=== PATIENT | female | born 1995 | race Caucasian/White ===

== ENCOUNTER 2024-04-01 18:09 | Emergency (ER) | payer MEDICAID, SELFPAY ==
[2024-04-01 18:27] VITALS: BP 120/81; PULSE 67; RESP 16; TEMP 37; O2SAT 98; BMI 33.3
[2024-04-01 20:36] VITALS: BP 118/79; PULSE 71; RESP 16; TEMP 37; O2SAT 98
[2024-04-01 20:43] LABS: Appearance Urine Cloudy (Clear); Bilirubin Urine Negative (Negative); Blood Urine 3+ (Negative); Color Urine Yellow (Yellow); Glucose Urine Negative (Negative); Ketones Urine Negative (Negative); Leukocyte Esterase Urine 1+ (Negative); Nitrite Urine Negative (Negative); Protein Urine Negative (Negative); Specific Gravity Urine 1.015 (1.000-1.030); Urobilinogen Urine 0.2 (0.2-1.0); pH Urine 6.5 (5.0-8.5)
--- NOTE | 2024-04-01 20:52 | ED.GENADULT ---
HPI - General Adult General Chief complaint: Urogenital Problems, Female Stated complaint: 5 weeks - cramping Time Seen by Provider: 04/01/24 19:34 History of Present Illness HPI narrative: This 29-year-old female comes in stating that she had a positive home test recently. She went into urgent care and her test there was negative. She was tested for strep infection and started on amoxicillin even though the rapid strep test was negative. She took this medicine and stated to the provider that she typically gets yeast infections symptoms when taking an antibiotic. She was called the next day stating that the strep culture was negative and that she should discontinue her antibiotic. Since then she did another home test which was again positive for her despite the negative test at the urgent care clinic. She comes in today stating that she has some vaginal itching and burning ends of abdominal cramping but no bloody discharge. Related Data Previous Rx's ?Medication ?Instructions ?Recorded fluconazole 100 mg tablet 100 mg PO DAILY #10 tabs 04/01/24 (Diflucan) Allergies Allergy/AdvReac Type Severity Reaction Status Date / Time No Known Drug Allergies Allergy Verified 04/01/24 18:26 Review of Systems Status of ROS: Reports: 10 or more systems reviewed and unremarkable except as noted in History and below Narrative: Constitutional: No fevers, no weight gain or loss. Eyes: No discharge. No vision changes. HENT: No congestion, no sore throat, no ear pain. Cardiovascular: No chest pain, no palpitations. Respiratory: No shortness of breath, no wheezes, no cough. Gastrointestinal: No abdominal pain, no vomiting, no diarrhea. Genitourinary: Increased urinary frequency. Vaginal burning and itching. Musculoskeletal: Normal range of motion. Skin: No rashes, no pruritis. Neurological: No dizziness, weakness, sensory change, speech change. Endo/Heme/Allergies: No bruising or bleeding. No polydipsia. Pysch: no suicidality, no anxiety, no insomnia. All other systems reviewed and are negative. Exam Narrative: Exam Narrative: Constitutional: Well-developed, well-nourished, no acute distress. HEENT: Normocephalic, atraumatic. Neck: Normal range of motion. Nontender. Supple. Heart: Intact distal pulses. Lungs: No chest discomfort. No wheezes, rhonchi, or rales. Abdomen: Nontender. Back: Normal range of motion. Extremities: Normal range of motion. No injury. Skin: Intact. No rash. Warm. No erythema or pallor. Neurologic: No altered sensation. No weakness. Alert and oriented. Psychiatric: No suicidality. No anxiety or depression. No insomnia. Nursing notes and vitals signs are reviewed. Const: Vital Signs, click to edit/add: Vital Signs - 24 hr 04/01/24 18:27 04/01/24 20:36 Temperature 98.6 F 98.6 F Pulse Rate [Pulse Oximeter] 67 71 Respiratory Rate 16 16 Blood Pressure [[facility]] 120/81 118/79 Pulse Oximetry 98 98 Oxygen Delivery Me thod Room Air Room Air Course Vital Signs Vital signs: Initial Vital Signs Temperature 98.6 F 04/01/24 18:27 Temperature Source Temporal Artery Scan 04/01/24 18:27 Pulse Rate 67 04/01/24 18:27 Respiratory Rate 16 04/01/24 18:27 Blood Pressure 120/81 04/01/24 18:27 Blood Pressure Mean 94 04/01/24 18:27 Blood Pressure Position Sitting 04/01/24 18:27 Pulse Oximetry 98 04/01/24 18:27 Oxygen Delivery Method Room Air 04/01/24 18:27 Vital Signs Temperature 98.6 F 04/01/24 18:27 Pulse Rate 67 04/01/24 18:27 Respiratory Rate 16 04/01/24 18:27 Blood Pressure 120/81 04/01/24 18:27 Pulse Oximetry 98 04/01/24 18:27 Oxygen Delivery Method Room Air 04/01/24 18:27 Temperature 98.6 F 04/01/24 20:36 Pulse Rate 71 04/01/24 20:36 Respiratory Rate 16 04/01/24 20:36 Blood Pressure 118/79 04/01/24 20:36 Pulse Oximetry 98 04/01/24 20:36 Oxygen Delivery Method Room Air 04/01/24 20:36 Medical Decision Making MDM Narrative Medical decision making narrative: This patient comes in with concern that she is but also reports dysuria symptoms and some vaginal itching and burning. A quantitative beta hCG level returns undetected so the patient is definitely not . Urinalysis however does show evidence of urinary tract infection and her symptoms seem to also indicate a concomitant yeast infection. The patient received an oral dose of Diflucan here and prescriptions are provided for Diflucan and and [facility] prescription for Keflex is provided. Lab Data Labs: Lab Results 04/01/24 04/01/24 Range/Units 20:34 21:07 HCG, Quant < 2.39 mIU/mL Urine Color Yellow (Yellow) Urine Appearance Cloudy A (Clear) Urine pH 6.5 (5.0-8.5) Ur Specific [place] 1.015 (1.000-1.030) Urine Protein Negative (Negative) Urine Glucose (UA) Negative (Negative) Urine Ketones Negative (Negative) Urine Blood 3+ A (Negative) Urine Nitrite Negative (Negative) Urine Bilirubin Negative (Negative) Urine Urobilinogen 0.2 (0.2-1.0) Ur Leukocyte Esterase 1+ A (Negative) Urine RBC 5-10 A (0-2) Urine WBC 5-10 A (0-5) Ur Squamous Epith Cells Few (None-Few) Urine Bacteria Few A (None) Discharge Plan Discharge Clinical Impression: Urinary tract infection Patient Disposition: Home, Self-Care Condition: Stable Additional Instructions: Take medication as prescribed. Follow up with MD or return if worsening symptoms occur. Prescriptions: New fluconazole [Diflucan] 100 mg tablet 100 mg PO DAILY Qty: 10 0RF Follow Up/Referrals: Provider,Not a Local [Primary Care Provider] - Stand Alone Forms: [employer] Info Instructions
[2024-04-01 21:01] LABS: Bacteria Urine Few; Squamous Epithelial Cell Urine Few (None-Few)
[2024-04-01 21:50] LABS: HCG Quantitative* < 2.39 mIU/mL
[2024-04-01] MEDS: FLUCONAZOLE 100 MG TABLET 200 MG PO (22:05)
[2024-04-01 22:15] VITALS: BP 115/74; PULSE 78; RESP 16; TEMP 37; O2SAT 98
[2024-04-01 22:24] VITALS: BP 115/74; PULSE 78; RESP 16; TEMP 37
== END 2024-04-01 22:24 | disposition home or self-care (01) ==
PROVIDERS: Emergency Provider Emergency Medicine Emergency Medical Services
DX: N39.0 Urinary tract infection, site not specified (principal)
CPT/HCPCS: 36415; 81001; 84702; 87086; 87186; 99283; 99284; A9270

== ENCOUNTER 2024-06-12 21:19 | Emergency (ER) | payer MEDICAID, SELFPAY ==
[2024-06-12 21:24] VITALS: BP 125/85; PULSE 66; RESP 18; TEMP 37.1; O2SAT 99; BMI 33.3
[2024-06-12 21:38] LABS: Appearance Urine Clear (Clear); Bilirubin Urine Negative (Negative); Blood Urine Trace-intact (Negative); Color Urine Yellow (Yellow); Glucose Urine Negative (Negative); Ketones Urine Negative (Negative); Leukocyte Esterase Urine Negative (Negative); Nitrite Urine Negative (Negative); Protein Urine Negative (Negative); Specific Gravity Urine <= 1.005 (1.000-1.030); Urobilinogen Urine 0.2 (0.2-1.0); pH Urine 5.5 (5.0-8.5)
[2024-06-12 21:45] LABS: RBC Urine 0-2 (0-2); Squamous Epithelial Cell Urine Few (None-Few); WBC Urine 0-2 (0-5)
[2024-06-12 21:46] LABS: Ur HCG Qualitative* POSITIVE (Negative)
--- NOTE | 2024-06-12 21:56 | CRLHL7_ITS ---
For Patients: As a result of the Century Cures Act, medical imaging exams and procedure reports are released immediately into your electronic medical record. You may view this report before your referring provider. If you have questions, please contact your health care provider. INDICATION: Pelvic pain, positive test. TECHNIQUE: Ultrasound pelvis transvaginal for better assessment or to better visualize the endometrium. Real-time sonographic images with spectral and color Doppler imaging of the ovaries were obtained. COMPARISON: None. FINDINGS: Uterus: 9.9 x 4.8 x 5.4 cm. Normal echotexture of the myometrium. No masses. Endometrium: Transvaginal imaging was performed to better evaluate the endometrium. Endometrial thickness measures 2.7 cm. No sign of endometrial mass or fluid collection. Right ovary measures 5.0 x 4.2 x 4.5 cm. Left ovary measures 2.2 x 2.5 x 2.5 cm. The right ovary is enlarged by a 4.2 x 4.0 x 3.8 cm hemorrhagic cyst. Normal blood flow is demonstrated in both ovaries. Cul-de-sac: No significant free fluid. IMPRESSION: 1. Markedly distended endometrium measuring 2.7 cm. No intrauterine gestation identified. In the setting of a positive beta HCG, findings could represent an early nonvisualized intrauterine gestation, an early nonvisualized ectopic , or a failed intrauterine gestation. Recommend close clinical follow-up with serial B-HCGs and repeat US, as indicated. 2. 4.2 cm right ovarian hemorrhagic cyst. Dictated by Allen Carrasco MD @ 06/13/2024 12:31:38 AM (Electronically Signed)
[2024-06-12 22:20] LABS: Lactate Sepsis w/Reflex* 0.8 mmol/L (0.5-1.9)
--- NOTE | 2024-06-12 22:56 | ED_ITS ---
HPI - General Adult General Date Seen: 06/12/24 Chief complaint: Abdominal Pain Stated complaint: severe abdominal pain, vomiting blood Time Seen by Provider: 06/12/24 21:30 Source: patient History of Present Illness HPI narrative: Patient is a 29-year-old woman who says she has had lower abdominal pain for about a week now. She describes it as a brief stabbing pain, lasting a couple of seconds but severe when it is there. She also says there is sort of a pressure sensation that is worse when she is walking or moving around, that feels more like labor pains. Over the past couple of days she says that the pain has worsened, and today she had several episodes of vomiting, a couple of times with some small clots of blood. The last time she vomited she says it was just saliva without any blood. She has not had any vomiting since then. She notes that her breasts have been somewhat tender. Her last period was May 04, she says ever since getting and the Nexplanon removed she has had irregular periods. She does take control pills. She has a history of 4 pregnancies, 1 molar greater than 8 years ago. She has 3 children. She denies new partners. She does feel like she has had a little more discharge than usual. She has not had urinary symptoms. She has not had any vaginal bleeding. She denies substance use, rare alcohol. Denies abdominal surgeries, did have a breast reduction. Related Data Previous Rx's ?Medication ?Instructions ?Recorded oxycodone 5 mg tablet 5 mg PO Q6H PRN pain #10 tabs 06/13/24 Allergies Allergy/AdvReac Type Severity Reaction Status Date / Time No Known Drug Allergies Allergy Verified 04/01/24 18:26 Review of Systems Status of ROS: Reports: 6 or more systems reviewed and unremarkable except as noted in History and below [facility] Medical History No significant past medical history Surgical History No significant past surgical history Social History Smoking Status: Never smoker Second hand tobacco smoke exposure: No How often do you have a drink containing alcohol: never AUDIT-C Alcohol total score: 0 Non-prescribed substance use: denies use service: No Exam Narrative: Exam Narrative: Vital signs reviewed In general, alert, nontoxic woman. She looks comfortable. Head: Normocephalic, atraumatic. Eyes: Sclera clear. Pupils equal and reactive. ENT: Mucous membranes moist. Neck: Supple without adenopathy. Heart: Regular rate and rhythm without murmur. Lungs: Clear. No increased work of breathing, crackles or wheezes. Abdomen: Abdomen is soft. She has lower abdominal tenderness with some volu ntary guarding, no rebound tenderness. Bowel sounds are present. She does not have right upper quadrant or epigastric tenderness. Pelvic exam: Scant mucoid cervical discharge, no purulence. No cervical motion tenderness. She really does not have any adnexal tenderness either, just continues to have suprapubic tenderness externally with bimanual exam. No obvious masses. Extremities: Well perfused, pulses intact. No significant edema. Neurologic: Alert, conversant. Speech fluent, face symmetric. Moves all extremities equally. Skin: Warm, dry well perfused. Affect: Normal. Const: Vital Signs, click to edit/add: Vital Signs - 24 hr 06/12/24 21:24 06/12/24 23:02 Temperature 98.7 F Pulse Rate [Pulse Oximeter] 66 54 L Respiratory Rate 18 16 Blood Pressure [Ri ght Upper Arm] 125/85 111/63 Pulse Oximetry 99 99 Oxygen Delivery Me thod Room Air Room Air Course Course ED Course: Following my initial evaluation, we had obtained a urinalysis. The UA was negative but her test was positive. I did look at the bedside ultrasound, trans vaginally, I did not see an obvious intrauterine , but according to her dates she would be quite early. I did not see any free fluid in pouch or splenorenal views, nor did she have free fluid in the pelvis. GC chlamydia and wet prep were sent and are pending. Labs are pending as well. Diagnostic considerations include ectopic , PID, ovarian cyst, ovarian torsion, appendicitis, inflammatory bowel disease, among others. She did vomit some blood earlier, she is not having any significant chest pain, and I suspect this was related to a Haley-Bocanegra tear. She did not have any further vomiting while here. She did have some Tylenol for pain. Labs are notable for normal white blood cell count of 7.5, hemoglobin of 14. Metabolic panel is normal, lactate is 0.8, LFTs are normal, CRP is less than 0.5. Lipase is 159. Quant HCG is 595. Urinalysis was negative aside from trace blood. Prep was negative as was GC and chlamydia. She went on to have a formal ultrasound of the pelvis. Formal ultrasound was read by Radiology, reviewed and linked below. They noted a distended endometrium without an IUP which they felt could represent an early nonvisualized IUP, and early nonvisualized ectopic, or a failed IUP. She has a 4.2 cm right ovarian hemorrhagic cyst which I think is responsible for her pelvic pain over the past couple of days. She has normal blood flow noted on both ovaries. Given mu ltiple days of symptoms and normal white blood cell count, CRP, lactate, I do not think this represents another acute surgical process such as appendicitis. Case was discussed with Dr. Mccormick, who recommends serial HCGs and follow-up ultrasound. I have discussed all this with the patient. I am prescribing oxycodone for her if needed for more severe pain at home, otherwise she can use Tylenol. She has received her OB care at the [facility] in [place] where she lives. I have recommended that she call them on Saturday, which will be 2 days from now, and arrange follow-up for repeat hCG. Return at any time for significant worsening, severe uncontrolled pain, vaginal bleeding, fevers, or other new concerning symptoms. Vital Signs Vital signs: Initial Vital Signs Temperature 98.7 F 06/12/24 21:24 Temperature Source Temporal Artery Scan 06/12/24 21:24 Pulse Rate 66 06/12/24 21:24 Respiratory Rate 18 06/12/24 21:24 Blood Pressure 125/85 06/12/24 21:24 Blood Pressure Mean 98 06/12/24 21:24 Blood Pressure Position Sitting 06/12/24 21:24 Pulse Oximetry 99 06/12/24 21:24 Oxygen Delivery Method Room Air 06/12/24 21:24 Vital Signs Temperature 98.7 F 06/12/24 21:24 Pulse Rate 66 06/12/24 21:24 Respiratory Rate 18 06/12/24 21:24 Blood Pressure 125/85 06/12/24 21:24 Pulse Oximetry 99 06/12/24 21:24 Oxygen Delivery Method Room Air 06/12/24 21:24 Temperature 98.7 F 06/12/24 21:24 Pulse Rate 54 L 06/12/24 23:02 Respiratory Rate 16 06/12/24 23:02 Blood Pressure 111/63 06/12/24 23:02 Pulse Oximetry 99 06/12/24 23:02 Oxygen Delivery Method Room Air 06/12/24 23:02 Medications Administered Medications: Discontinued Medications Generic Name Dose Route Start Last Admin Trade Name Andrews PRN Reason Stop Dose Admin Acetaminophen 1,000 mg 06/13/24 00:26 06/13/24 00:33 Acetaminophen 500 Mg Tablet PO 06/13/24 00:27 1,000 mg ONCE ONE Administration Medical Decision Making Lab Data Labs: Lab Results 06/12/24 06/12/24 06/12/24 Range/Units 21:30 22:15 22:20 WBC 7.53 (4.50-11.00) K/uL RBC 4.79 (4.00-5.20) m/uL Hgb 14.0 (12.0-16.0) gm/dL Hct 41.7 (33.0-51.0) % MCV 87 (80-100) fL MCH 29 (26-34) pg MCHC 34 (32-36) gm/dL RDW Coeff of Jerman 12.7 (11.5-15.5) % Plt Count 283 (140-440) K/uL Neut % (Auto) 65.9 (42.0-72.0) % Lymph % (Auto) 25.6 (20-44) % [place] % (Auto) 7.0 (0.0-11.0) % Eos % (Auto) 0.7 (0.0-7.0) % Baso % (Auto) 0.3 (0.0-3.0) % Neut # (Auto) 4.96 (1.7-7.0) K/uL Lymph # (Auto) 1.93 (0.90-2.90) K/uL [place] # (Auto) 0.50 (0.00-0.90) K/UL Eos # (Auto) 0.05 (0.00-0.50) K/uL Baso # (Auto) 0.02 (0.00-0.30) K/uL Abs Immat Gran (auto) 0.04 (0.00-0.30) K/uL Imm/Tot Granulo (auto) 0.5 % Sodium 135 (135-149) mmol/L Potassium 3.6 (3.6-5.1) mmol/L Chloride 108 (96-114) mmol/L Carbon Dioxide 20 (20-32) mmol/L Anion Gap 7 (7-15) mEq/L BUN 8 (5-24) mg/dL Creatinine 0.5 (0.5-1.5) mg/dL Estimated Creat Clear 146.70 Estimated GFR 129 ml/min Glucose 100 (60-115) mg/dL Lactate 0.8 (0.5-1.9) mmol/L Calcium 9.0 (8.4-10.6) mg/dL Total Bilirubin 0.4 (0.1-1.5) mg/dL Direct Bilirubin 0.3 (0.0-0.5) mg/dL AST 20 (12-35) U/L ALT 26 (4-35) U/L Alkaline Phosphatase 62 (40-150) U/L C-Reactive Protein < 0.5 L (0.5-1.0) mg/dL Total Protein 7.6 (6.0-8.3) g/dL Albumin 4.4 (3.3-5.0) g/dL Lipase 159 (23-300) U/L HCG, Quant mIU/mL Urine Color Yellow (Yellow) Urine Appearance Clear (Clear) Urine pH 5.5 (5.0-8.5) Ur Specific [place] <= 1.005 (1.000-1.030) Urine Protein Negative (Negative) Urine Glucose (UA) Negative (Negative) Urine Ketones Negative (Negative) Urine Blood Trace-intact A (Negative) Urine Nitrite Negative (Negative) Urine Bilirubin Negative (Negative) Urine Urobilinogen 0.2 (0.2-1.0) Ur Leukocyte Esterase Negative (Negative) Urine RBC 0-2 (0-2) Urine WBC 0-2 (0-5) Ur Squamous Epith Cells Few (None-Few) Urine Bacteria None (None) Urine HCG, Qual POSITIVE H (Negative) Vaginal Trichomonas No Trichomonas Seen (None Seen) Vaginal Yeast No Yeast Seen (None Seen) Vaginal Clue Cells No Clue Cells Seen (None Seen) C.trachomatis Ampl DNA NOT DETECTED (No Detected) N.gonorrhoeae Ampl DNA NOT DETECTED (No Detected) 06/12/24 Range/Units 23:31 WBC (4.50-11.00) K/uL RBC (4.00-5.20) m/uL Hgb (12.0-16.0) gm/dL Hct (33.0-51.0) % MCV (80-100) fL MCH (26-34) pg MCHC (32-36) gm/dL RDW Coeff of [place]erman (11.5-15.5) % Plt Count (140-440) K/uL Neut % (Auto) (42.0-72.0) % Lymph % (Auto) (20-44) % [place] % (Auto) (0.0-11.0) % Eos % (Auto) (0.0-7.0) % Baso % (Auto) (0.0-3.0) % Neut # (Auto) (1.7-7.0) K/uL Lymph # (Auto) (0.90-2.90) K/uL [place] # (Auto) (0.00-0.90) K/UL Eos # (Auto) (0.00-0.50) K/uL Baso # (Auto) (0.00-0.30) K/uL Abs Immat Gran (auto) (0.00-0.30) K/uL Imm/Tot Granulo (auto) % Sodium (135-149) mmol/L Potassium (3.6-5.1) mmol/L Chloride (96-114) mmol/L Carbon Dioxide (20-32) mmol/L Anion Gap (7-15) mEq/L BUN (5-24) mg/dL Creatinine (0.5-1.5) mg/dL Estimated Creat Clear Estimated GFR ml/min Glucose (60-115) mg/dL Lactate (0.5-1.9) mmol/L Calcium (8.4-10.6) mg/dL Total Bilirubin (0.1-1.5) mg/dL Direct Bilirubin (0.0-0.5) mg/dL AST (12-35) U/L ALT (4-35) U/L Alkaline Phosphatase (40-150) U/L C-Reactive Protein (0.5-1.0) mg/dL Total Protein (6.0-8.3) g/dL Albumin (3.3-5.0) g/dL Lipase (23-300) U/L HCG, Quant 595.76 mIU/mL Urine Color (Yellow) Urine Appearance (Clear) Urine pH (5.0-8.5) Ur Specific [place] (1.000-1.030) Urine Protein (Negative) Urine Glucose (UA) (Negative) Urine Ketones (Negative) Urine Blood (Negative) Urine Nitrite (Negative) Urine Bilirubin (Negative) Urine Urobilinogen (0.2-1.0) Ur Leukocyte Esterase (Negative) Urine RBC (0-2) Urine WBC (0-5) Ur Squamous Epith Cells (None-Few) Urine Bacteria (None) Urine HCG, Qual (Negative) Vaginal Trichomonas (None Seen) Vaginal Yeast (None Seen) Vaginal Clue Cells (None Seen) C.trachomatis Ampl DNA (No Detected) N.gonorrhoeae Ampl DNA (No Detected) Imaging Data Pelvic ultrasound: Attestation: I have reviewed the pertinent imaging results. Radiologist's impression: Patient: ERIBERTO CHEATHAM Facility: [facility] Site . Site : 1995 Study: US-Pelvis Transvaginal w/doppler-06/12/2024 11:37:29 PM Ordering Physician: Hailey Church Final Report: INDICATION: Pelvic pain, positive test. TECHNIQUE: Ultrasound pelvis transvaginal for better assessment or to better visualize the endometrium. Real-time sonographic images with spectral and color Doppler imaging of the ovaries were obtained. COMPARISON: None. FINDINGS: Uterus: 9.9 x 4.8 x 5.4 cm. Normal echotexture of the myometrium. No masses. Endometrium: Transvaginal imaging was performed to better evaluate the endometrium. Endometrial thickness measures 2.7 cm. No sign of endometrial mass or fluid collection. Right ovary measures 5.0 x 4.2 x 4.5 cm. Left ovary measures 2.2 x 2.5 x 2.5 cm. The right ovary is enlarged by a 4.2 x 4.0 x 3.8 cm hemorrhagic cyst. Normal blood flow is demonstrated in both ovaries. Cul-de-sac: No significant free fluid. IMPRESSION: 1. Markedly distended endometrium measuring 2.7 cm. No intrauterine gestation identified. In the setting of a positive beta HCG, findings could represent an early nonvisualized intrauterine gestation, an early nonvisualized ectopic , or a failed intrauterine gestation. Recommend close clinical follow- up with serial B-HCGs and repeat US, as indicated. 2. 4.2 cm right ovarian hemorrhagic cyst. Discharge Plan Discharge Clinical Impression: Hemorrhagic cyst of right ovary, Patient Disposition: Home, Self-Care Condition: Improved Instructions: (ED), Ovarian Cyst (ED) Additional Instructions: Based on your evaluation khushboo, I think your pelvic pain is related to a hemorrhagic cyst on your right ovary which is 4 cm in size. At this time, there is nothing to indicate that your pelvic pain is related to her . However, you do not have a identified in the uterus at this time and so you will need additional follow-up to confirm that this is developing normally. Please call your OB Clinic on Saturday and let them know that you were seen khushboo, you had a beta HCG of 564, you had an ultrasound showing no intrauterine but a thickened endometrium, and that you need a repeat hCG at the 48 hour reynold. You will likely need to be followed until your hCG is high enough that can be confirmed in the uterus with repeat ultrasound. If at any time you have new symptoms such as fevers, severe uncontrolled pain, bleeding, or other worsening or new symptoms, you can return to the emergency department. You can use Tylenol 1000 mg 3 times daily for pain. Oxycodone provided if needed for more severe pain. Prescriptions: New oxycodone 5 mg tablet 5 mg PO Q6H PRN (Reason: pain) Qty: 10 0RF Follow Up/Referrals: Provider,Not a Local [Primary Care Provider] - Stand Alone Forms: [employer] Info Instructions
[2024-06-12 22:59] LABS: Basophils Absolute Auto 0.02 K/uL (0.00-0.30); Basophils Percent Auto 0.3 % (0.0-3.0); Eosinophils Absolute Auto 0.05 K/uL (0.00-0.50); Eosinophils Percent Auto 0.7 % (0.0-7.0); Hematocrit 41.7 % (33.0-51.0); Immature Granulocytes Abs Auto 0.04 K/uL (0.00-0.30); Immature Granulocytes Pct Auto 0.5 %; Lymphocytes Absolute Auto 1.93 K/uL (0.90-2.90); Lymphocytes Percent Auto 25.6 % (20-44); Mean Corpuscular HGB Conc 34 gm/dL (32-36); Mean Corpuscular Hemoglobin 29 pg (26-34); Mean Corpuscular Volume 87 fL (80-100); Neutrophils Absolute Auto 4.96 K/uL (1.7-7.0); Neutrophils Percent Auto 65.9 % (42.0-72.0); Platelet Count* 283 K/uL (140-440); RDW Coefficient of Variation % 12.7 % (11.5-15.5); Red Blood Count 4.79 m/uL (4.00-5.20); White Blood Count* 7.53 K/uL (4.50-11.00)
[2024-06-12 23:02] VITALS: BP 111/63; PULSE 54; RESP 16; O2SAT 99
[2024-06-12 23:10] LABS: Slide Review Reflex No
[2024-06-12 23:14] LABS: Chloride* 108 mmol/L (96-114)
[2024-06-12 23:15] LABS: Albumin* 4.4 g/dL (3.3-5.0); Potassium* 3.6 mmol/L (3.6-5.1); Sodium* 135 mmol/L (135-149)
[2024-06-12 23:17] LABS: Creatinine* 0.5 mg/dL (0.5-1.5); Estimated Glomerular Filt Rate 129 ml/min
[2024-06-12 23:17] LABS: Clue Cells No Clue Cells Seen (None Seen); Trichomonas No Trichomonas Seen (None Seen); Yeast No Yeast Seen (None Seen)
[2024-06-12 23:18] LABS: Alanine Aminotransferase* 26 U/L (4-35); Alkaline Phosphatase* 62 U/L (40-150); Anion Gap 7 mEq/L (7-15); Aspartate Amino Transferase* 20 U/L (12-35); Bilirubin Direct* 0.3 mg/dL (0.0-0.5); Bilirubin Total* 0.4 mg/dL (0.1-1.5); Blood Urea Nitrogen* 8 mg/dL (5-24); Carbon Dioxide* 20 mmol/L (20-32); Glucose* 100 mg/dL (60-115); Lipase* 159 U/L (23-300); Total Protein* 7.6 g/dL (6.0-8.3)
[2024-06-12 23:28] LABS: C Reactive Protein* < 0.5 mg/dL (0.5-1.0)
[2024-06-13] MEDS: ACETAMINOPHEN 500 MG TABLET 1000 MG PO (00:33)
[2024-06-13 00:35] LABS: Chlamydia DNA Amplified* NOT DETECTED (No Detected); GC DNA Amplified* NOT DETECTED (No Detected)
== END 2024-06-13 01:04 | disposition home or self-care (01) ==
PROVIDERS: Emergency Provider Emergency Medicine
DX: O34.80 Maternal care for other abnormalities of pelvic organs, unspecified trimester (principal); N83.201 Unspecified ovarian cyst, right side; Z3A.00 Weeks of gestation of pregnancy not specified
CPT/HCPCS: 36415; 76817; 76830; 80048; 80076; 81001; 81025; 83605; 83690; 84702; 85025; 86140; 87210; 87491; 87591; 93976; 99284; A9270

== ENCOUNTER 2024-08-29 23:55 | Emergency (ER) | payer MEDICAID, SELFPAY ==
[2024-08-29 23:57] VITALS: BP 134/91; PULSE 66; RESP 18; TEMP 36.1; O2SAT 100; BMI 33.3
--- OUTSIDE RECORDS SUMMARY | 2024-08-29 23:57 | XMS_ITS | Clinical Summary ---
Author Organization [facility] Address [address] 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 13 Social History Tobacco Use Types Packs/Day Years Used Date Smoking Tobacco: Never Alcohol Use Standard Drinks/Week Comments Yes 0 (1 standard drink = 0.6 oz pur e alcohol) socially Comments No Sex and Gender Information Value Date Recorded Sex Assigned at Not on file Legal Sex Female 8:54 AM CDT Gender Identity Not on file Sexual Orientation Not on file Last Filed Vital Signs Vital Sign Reading Time Taken Comments Blood Pressure 113/77 04/15/2017 10:30 PM CDT Pulse 70 04/15/2017 10:33 PM CDT Temperature 36.5 C (97.7 F) 04/15/2017 7:01 PM CDT Respiratory Rate 16 04/15/2017 10:33 PM CDT Oxygen Saturation 98% 04/15/2017 10:30 PM CDT Inhaled Oxygen Concentration - - Weight 67.1 kg (148 lb) 10/21/2012 8:05 AM CDT Height 161.9 cm (5' 3.75) 10/21/2012 8:05 AM CD T Body Mass Index 25.6 10/21/2012 8:05 AM CDT Plan of Treatment Not on file Care Teams Jewelry Technician Relationship Specialty Start Date End Date Clinic, [facility] [address] [place] [id number] PCP - General 04/15/17 Shirlene Soto Referring Physician dietetic assistant 10/06/12
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
--- NOTE | 2024-08-30 00:58 | ED_ITS ---
HPI - General Adult General Chief complaint: Urogenital Problems, Female Stated complaint: painful urination Time Seen by Provider: 08/30/24 00:42 Source: patient Mode of arrival: ambulatory Limitations: no limitations History of Present Illness HPI narrative: 29-year-old female presents to the emergency department for evaluation of rash in the genital area. It is located on the bilateral buttocks area and is tender to the touch and itchy. She is concerned that it could be an STD. [facility] those records. She has not used any Tylenol or ibuprofen to try to help with her pain. She was prescribed doxycycline and nitrofurantoin for a bladder infection. She reports that ?they did not know what the rash was?. It sounds as though the doxycycline was for the rash but the nitrofurantoin was for the bladder infection. They did not advise any topical agents but shoulder it did not seem like this was herpes. It is bilateral, slightly tender to the touch she also has swelling near the vaginal opening which she reports is new tender to the touch. No history of herpes. Monogamous, partner works in construction and she is concerned about face fullness. She admits that she is quite anxious and thinks that this drove her decision to come to an emergency department in the middle of the night for her concerns. No new topical exposures, uses Valerio for hair removal. Did start Nexplanon a couple of months ago and reports that she has had frequent spotting with this and is using pads and tampons but no new product. States that her past medical history is benign, denies major long-term health problems. Home medications are the Nexplanon, denies chance of . No allergies. ROS is notable for the rash in the genital region only, no other areas. Related Data Previous Rx's ?Medication ?Instructions ?Recorded oxycodone 5 mg tablet 5 mg PO Q6H PRN pain #10 tabs 06/13/24 Allergies Allergy/AdvReac Type Severity Reaction Status Date / Time No Known Drug Allergies Allergy Verified 04/01/24 18:26 [facility] Medical History No significant past medical history Surgical History No significant past surgical history Social History Smoking Status: Never smoker Second hand tobacco smoke exposure: No How often do you have a drink containing alcohol: never AUDIT-C Alcohol total score: 0 Non-prescribed substance use: denies use service: No Exam Const: Vital Signs, click to edit/add: Vital Signs - 24 hr 08/29/24 23:57 Temperature 97.0 F L Pulse Rate [Left P ulse Oximeter] 66 Respiratory Rate 18 Blood Pressure [Ri ght Upper Arm] 134/91 H Pulse Oximetry 100 Oxygen Delivery Me thod Room Air Documenting provider has reviewed patient's vital signs: yes Other: Anxious but redirectable HENMT: Common normals: oropharynx normal Eye: Common normals: conjunctivae normal General eye: normal appearance of both eyes Conjunctiva: conjunctiva(e) normal Resp: Common normals: normal respiratory effort Effort & inspection: able to speak in complete sentences : Other: Normal external anatomy. Normal clitoral oconnor, periurethral area. Normal appearing vaginal orifice. Slight enlargement of a focal area in the right labia majora, 1 cm in size. It is not quite at the [place] area more so associated with a lymph node. Mildly tender to the touch, slightly mobile, nonfluctuant. No associated drainage. The rash in question is over both pleural areas it is macular, pinpoint diffuse. Spread just across the cheeks and a little bit on the thigh area. No other affected areas. Extremity: Common normals: normal to inspection Psych: Activity/motor behavior: appropriate eye contact Mood and affect: euthymic mood Attention/concentration: attention grossly intact Memory/cognition: memory grossly intact Insight: fair Judgement: fair Skin: Common normals: no rashes or lesions noted General skin exam: no rashes or lesions noted Course Course ED Course: 29-year-old female with rash in the perineal area most likely consistent with a folliculitis. No signs of herpes or STI. Labial lesion is likely a reactive lymph node from the folliculitis, no signs significant gland infection, unusual vaginal discharge or signs of injury or trauma. Patient already has prescription for doxycycline which is a good choice for the folliculitis. No changes to this plan of care are needed. I recommended a topical zinc oxide based barrier ointment to the rash area and let her know that it will take 7-10 days for this to resolve. If it does not clear up, a better choice of re- evaluation would be a primary care clinic or gynecology office. Alarm symptoms reviewed that would warrant ED presentation. Counseled on Tylenol and ibuprofen as needed for pain control. Vital Signs Vital signs: Initial Vital Signs Temperature 97.0 F L 08/29/24 23:57 Temperature Source Temporal Artery Scan 08/29/24 23:57 Pulse Rate 66 08/29/24 23:57 Pulse Rhythm Regular 08/29/24 23:57 Respiratory Rate 18 08/29/24 23:57 Blood Pressure 134/91 H 08/29/24 23:57 Blood Pressure Mean 105 08/29/24 23:57 Blood Pressure Position Sitting 08/29/24 23:57 Pulse Oximetry 100 08/29/24 23:57 Oxygen Delivery Method Room Air 08/29/24 23:57 Vital Signs Temperature 97.0 F L 08/29/24 23:57 Pulse Rate 66 08/29/24 23:57 Respiratory Rate 18 08/29/24 23:57 Blood Pressure 134/91 H 08/29/24 23:57 Pulse Oximetry 100 08/29/24 23:57 Oxygen Delivery Method Room Air 08/29/24 23:57 Temperature 97.0 F L 08/29/24 23:57 Pulse Rate 66 08/29/24 23:57 Respiratory Rate 18 08/29/24 23:57 Blood Pressure 134/91 H 08/29/24 23:57 Pulse Oximetry 100 08/29/24 23:57 Oxygen Delivery Method Room Air 08/29/24 23:57 Discharge Plan Discharge Clinical Impression: Folliculitis Patient Disposition: Home, Self-Care Condition: Stable Instructions: Folliculitis (ED) Additional Instructions: As we discussed, the rash is consistent with folliculitis. This is a minor bacterial infection of the hair follicles and is often associated with sweating, wetness or irritation from certain skin care products. This is not a sign of an STD. His certainly could be related to hormone changes from your Nexplanon device, irritation from frequent pad wearing, sweat or other mild hormonal changes. The antibiotic that your prescribed is a perfect choice. I would also like for you to apply a barrier ointment that is zinc oxide paste 2-3 times daily for the next week. The swollen area near the vaginal opening is a lymph node. These react to mild infections like the folliculitis. This will take 1-2 weeks to go away and does not need any special treatment and is also not a sign of an STD. Sometimes it can also just be from a blocked 1 gland and will take some time to resolve. Soaking in a warm bath to help promote drainage for 30 minutes once a day and then padding everything dry and applying the barrier ointment as we described is often your best course of action. These are rarely evaluated in an emergency department. If you have persistent symptoms, it is important that you make an appointment with the right provider. This is better evaluated by a primary care provider or by a bander and cellophaner machine helper. For pain, you may use Tylenol 1000 mg every 6 hours and or ibuprofen 600 mg every 6 hours. Activity Level: No Restrictions Discharge Diet: Regular Prescriptions: No Action oxycodone 5 mg tablet 5 mg PO Q6H PRN (Reason: pain) Qty: 10 0RF Follow Up/Referrals: Provider,Not a Local [Non-Staff] - Stand Alone Forms: [employer] Info Instructions
--- OUTSIDE RECORDS SUMMARY | 2024-08-30 01:03 | XMS_ITS | Clinical Summary ---
Author Organization [facility] Address [address] [place] [address] Care Team Providers Care Marine Architect Name Role Phone IvydariaShirlene lazaroy Unavailable Unavail able [facility], [facility] Primary Care Provider + [...] of Treatment Not on file Care Teams Marine Architect Relationship Specialty Start Date End Date Clinic, [facility] [address] [place] [phone] PCP - General 04/15/17 Shirlene Soto Referring Physician software systems analyst 10/06/12
--- OUTSIDE RECORDS SUMMARY | 2024-08-30 01:03 | XMS_ITS | Clinical Summary ---
Author Organization [employer] 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 Current Comments Blood type A positive. Last [...] HIV 1/2 (12/20/2021 11:10 AM CDT) Pathologist [facility] HIV-1/HIV-2 ANTIBODY Non-Reacti ve Non-Reacti ve 12/20/2021 8:18 PM CDT [facility] Comment:HIV-1 p24 and HIV-1/ HIV-2 Ab not detected. Blood BLOOD SPECIMEN / Unknown Venipuncture / Unknown 12/20/2021 11:10 AM CDT 12/20/2021 11:13 AM CDT us Catherine Andrews MD SEND OUTS Final Resul t [facility] [address] [place] [address], * HPV HIGH RISK (12/20/2021 10:38 AM CDT) TYPE 16 Negative Negative 12/22/2021 2:05 PM CDT [facility] TYPE 18 Negative Negative 12/22/2021 2:05 PM CDT [facility] OTHER HIGH RISK TYPES Negative Negative 12/22/2021 2:05 PM CDT [facility] Other (Cervical) Non-Blood / Unknown 12/20/2021 10:38 AM CDT 12/20/2021 5:17 PM CDT Narrative [facility] - 12/22/2021 2:05 PM CDT HPV types 16, 18, 31, 33, 35, 39, 45, 51, 52, 56, 58, 59, 66 and 68 DNA were undetectable or below the pre-set threshold. Methodology: Nara Denys 4800 HPV Test us Catherine Andrews MD MICROBIOLOGY Final Resul t [facility] [address] [place] [address], * ANTI HCV (09/16/2018 9:52 AM CDT) HEPATITIS C ANTIBODY Non-React camilo Non-React camilo 09/16/2018 7:41 PM CDT [facility] Comment:Antibodies to HCV no t detected; does not exclude the possibility of exposure to HCV. Blood BLOOD SPECIMEN / Unknown Venipuncture / Unknown 09/16/2018 9:52 AM CDT 09/16/2018 9:57 AM CDT us Lynnette Black NP SEND OUTS Final Re sult [facility] [address] [place] [address], from Last 3 Months or Most Recently Relevant to Health Maintenance Insurance MEDICA CHOICE CARE MEDICAID [facility] DEPT [address] [place] [id number] Advance Directives * Full Code (Latest Code [...] 6:12 PM 11/23/2015 10:34 PM Care Teams Bill Checker Relationship Specialty Start Date End Date Mey Marin NP [address] [place] [address] [place] [address] PCP - General Nurse Practitioner - Family 07/12/20
== END 2024-08-30 01:15 | disposition home or self-care (01) ==
PROVIDERS: Emergency Provider Family Medicine; PCP Nurse Practitioner Family
DX: L73.9 Follicular disorder, unspecified (principal)
CPT/HCPCS: 81001; 99283

== ENCOUNTER 2024-12-03 10:28 | Emergency (ER) | payer MEDICAID, SELFPAY ==
[2024-12-03] VITALS (7 sets, daily range): BP systolic 115–123; BP diastolic 65–83; PULSE 52–69; RESP 16–20; TEMP 36.1; O2SAT 97–99; BMI 34.6
--- OUTSIDE RECORDS SUMMARY | 2024-12-03 10:31 | XMS_ITS | Clinical Summary ---
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 2010 SAB Complications:Molar pregnanc y () 2010 Term M Adonis Huddleston tt 2011 Term 2.72 kg (6 lb) Nadya chakraborty Comments:System Genera gurdeep. Please review and update details. 2015 Term 37w 0d 0h 10m/ 3.21 kg (7 lb 1.2 oz) Nadya Vag-S pont Epidriccardo al Livin g 8 9 Complications:None Delivery Location:[facility] Current Comments Blood type A [...] COVID-19 vaccine series ( season) 2024 01/27/2021 Pap test for age 21-65 12/20/2024 2, 12/20/2021, 09/16/2018, Additional history exists Influenza Vaccine (Season Ended) 2025 05/24/2010 RSV vaccine for adults or (1 - 1-dose 75+ series) 02/20/2068 Hepatitis B series for 19+ Completed 02/21, 1993, 1993 Hepatitis C screening for age 18-79 Completed 09/16/2018 HIV for age 15-65 Completed 12/20/2021, , 11/27/2016, Additional history exists Pneumococcal series for age 6-49 Aged Out No longer eligible based on patient's age to complete this topic Procedures Procedure Name Priority Date/Time Associated Diagnosis Comments ANTI HIV 1/2 Routine 12/20/2021 11:10 AM CDT Routine screening for STI (sexually transmitted infection) [employer] THIN PREP PAP SCREEN IMAGED Routine 12/20/2021 10:38 AM CDT Pap smear for cervical cancer screening ANTI HCV Routine 09/16/2018 9:52 AM CDT Screening examination for STD (sexually transmitted disease) from Last 3 Months or Most Recently Relevant to Health Maintenance Results * ANTI HIV 1/2 (12/20/2021 11:10 AM CDT) HIV-1/HIV-2 ANTIBODY Non-Reacti ve Non-Reacti ve 12/20/2021 8:18 PM CDT [facility] Comment:HIV-1 p24 and HIV-1/ HIV-2 Ab not detected. Blood BLOOD SPECIMEN / Unknown Venipuncture / Unknown 12/20/2021 11:10 AM CDT 12/20/2021 11:13 AM CDT us Catherine Andrews MD SEND OUTS Final Resul t [facility] [address] [place] [address], * [employer] THIN PREP PAP SCREEN IMAGED (12/20/2021 10:38 AM CDT) Case Report Gynecologic Cytology Report Case: [id number] Authorizing Provider: Catherine Andrews MD Collected: 12/20/2021 1038 Ordering Location: [facility] Received: 12/20/2021 1131 Clinic First Screen: Mat, Hillaryon Patricio Rescreen: Loly Kendall Specimen: [employer] ThinPrep Vial Screening, Cervical 01/04/2022 1:[address] [facility] INTERPRETATION/ RESULT NEGATIVE FOR INTRAEPITHELIAL LESION OR MALIGNANCY (NIL) (none) 01/04/2022 1:[address] [facility] at 1335 CDT SPECIMEN ADEQUACY Satisfactory for evaluation Endocervical component present 01/04/2022 1:[address] [facility] HPV REQUEST HPV and PAP 01/04/2022 1:[address] [facility] Date of LMP 11/07/2021 01/04/2022 1:[address] [facility] Last Pap Date 03/06/21 01/04/2022 1:[address] [facility] Last Pap Result LSIL 1:[address] [facility] Abnormal Pap or [place] Bx in last 5 years Yes 01/04/2022 1:[address] [facility] Menstrual Status Regular Periods 01/04/2022 1:[address] [facility] [place] Bx Done Today No 01/04/2022 1:[address] [facility] Additional Information 04/06 normal colpscopy. No bx collected. 01/04/2022 1:[address] [facility] Comment: Cytology is screened at [facility] [employer] [facility] - [address], [place] [address] and [facility] - [address], [place] [address] and [facility] - [address] [facility] [place] [address] Interpreted at [facility] [employer] [facility] - [address], [place] [address] Automated Review Successful 01/04/2022 1:[address] [facility] Comment:Specimen processed s uccessfully by automated entry rep device, ThinPrep Imaging System, [employer] ANCILLARY TESTING [employer] HPV Ordered, Please see separate report 01/04/2022 1:35 PM CDT [facility] Note The pap test is a screening technique, not a diagnostic procedure. It is used primarily to screen for squamous cancers and precursor lesions. Published studies have shown that it is subject to both false negative and false positive results. The pap test should not be used as the sole means to diagnose or exclude pre-malignant and malignant lesions. 01/04/2022 1:35 PM CDT [facility] Other (Cervical) Non-Blood / Unknown 12/20/2021 10:38 AM CDT 12/20/2021 11:31 AM CDT us Catherine Andrews MD PATHOLOGY/CYTOLOGY Final Re sult Performing Organization Address City/[facility]/ZIP Co de Phone Number [facility] [address] [place] [address], [place] * ANTI HCV (09/16/2018 9:52 AM CDT) HEPATITIS C ANTIBODY Non-React camilo Non-React camilo 09/16/2018 7:41 PM CDT [facility] Comment:Antibodies to HCV no t detected; does not exclude the possibility of exposure to HCV. Blood BLOOD SPECIMEN / Unknown Venipuncture / Unknown 09/16/2018 9:52 AM CDT 09/16/2018 9:57 AM CDT us Lynnette Black NP SEND OUTS Final Re sult [facility] [address] [place] [address], from Last 3 Months or Most Recently Relevant to Health Maintenance Insurance MEDICA CHOICE CARE MEDICAID [facility] DEPT [address] [place] [id number] Advance Directives * Full Code (Latest Code [...] 6:12 PM 11/23/2015 10:34 PM Care Teams Band Shover Relationship Specialty Start Date End Date Mey Marin NP [address] [place] [address] [place] [id number] PCP - General Nurse Practitioner - Family 07/12/20
--- OUTSIDE RECORDS SUMMARY | 2024-12-03 10:31 | XMS_ITS | Clinical Summary ---
Author Organization [facility] Address [address] [place] [address] Care Team Providers Care Ring Packer Name Role Phone sukhwinderShirlene lazaroy Unavailable Unavail able [facility], Justin Crews Primary Care Provider + [...] of Treatment Not on file Care Teams Ring Packer Relationship Specialty Start Date End Date Clinic, Justin Crews [address] [place] [id number] PCP - General 04/15/17 Shirlene Soto Referring Physician university demonstrator 10/06/12
--- NOTE | 2024-12-03 11:33 | ED.GENADULT ---
HPI - General Adult General Chief complaint: Abdominal Pain Stated complaint: Left side pain shoots to lower front abdominal Time Seen by Provider: 12/03/24 11:32 History of Present Illness HPI narrative: 29-year-old woman presenting to the emergency department with concern of abdominal pain. Left side. Pain is sharp and stabbing. She says it feels like she is in labor. That the left side of her abdomen and then she will also shooting pain down the left leg. The leg pain does not correlate with the abdominal pain. She does think that flares of pain though is contributing sensation of feeling hot lightheaded maybe. She is also experiencing some nausea. Recent treatment for urinary tract infection; she did complete the course of antibiotics. She has noted more now frequency and did see some blood in her urine. Does not have regular menses with Nexplanon for. Incidentally she notes that it has migrated from its initial site of placement. In May of 2024 for was seen in this emergency department with a right-sided hemorrhagic ovarian cyst. Later questioning clarification shows relatively unremarkable urinalysis from November 18. Culture grew ureaplasma. She did also test positive for BV at that time. Was treated with a course of doxycycline and metronidazole. She does not have any unusual discharge or odor. Related Data Previous Rx's ?Medication ?Instructions ?Recorded oxycodone 5 mg tablet 5 mg PO Q6H PRN pain #10 tabs 06/13/24 Allergies Allergy/AdvReac Type Severity Reaction Status Date / Time No Known Drug Allergies Allergy Verified 12/03/24 11:27 Review of Systems Status of ROS: Reports: 6 or more systems reviewed and unremarkable except as noted in History and below [facility] Medical History No significant past medical history Surgical History No significant past surgical history Social History Smoking Status: Never smoker Second hand tobacco smoke exposure: No How often do you have a drink containing alcohol: never AUDIT-C Alcohol total score: 0 Non-prescribed substance use: denies use service: No Exam Narrative: Exam Narrative: Pleasant. Seated upright with her hand at her left side. Clearly uncomfortable. Breathing normally. Lungs are clear. Heart in regular rate and rhythm without murmur rub or gallop. Abdomen is soft and without peritoneal signs. She is however quite tender to palpation in the mid left abdomen and throughout the pelvis. Also quit sore to palpation over the left greater trochanter. Straight leg raise is negative. Extremities are well perfused without edema. Scars on in her left arm and about 2 in from that is palpable her Nexplanon. Const: Vital Signs, click to edit/add: Vital Signs - 24 hr 12/03/24 11:27 12/03/24 12:29 12/03/24 12:30 Temperature 97 F L Pulse Rate 58 L 52 L Pulse Rate [Pulse Oximeter] 69 Respiratory Rate 20 16 Blood Pressure [Ri ght Upper Arm] 123/83 Pulse Oximetry 99 97 97 12/03/24 12:45 12/03/24 13:00 12/03/24 13:59 Temperature Pulse Rate 54 L Pulse Rate [Pulse Oximeter] Respiratory Rate 18 Blood Pressure [Ri ght Upper Arm] 115/65 Pulse Oximetry 98 98 Documenting provider has reviewed patient's vital signs: yes Course Vital Signs Vital signs: Initial Vital Signs Temperature 97 F L 12/03/24 11:27 Temperature Source Temporal Artery Scan 12/03/24 11:27 Pulse Rate 69 12/03/24 11:27 Pulse Rhythm Regular 12/03/24 11:27 Respiratory Rate 20 12/03/24 11:27 Blood Pressure 123/83 12/03/24 11:27 Blood Pressure Mean 96 12/03/24 11:27 Pulse Oximetry 99 12/03/24 11:27 Vital Signs Temperature 97 F L 12/03/24 11:27 Pulse Rate 69 12/03/24 11:27 Respiratory Rate 20 12/03/24 11:27 Blood Pressure 123/83 12/03/24 11:27 Pulse Oximetry 99 12/03/24 11:27 Temperature 97 F L 12/03/24 11:27 Pulse Rate 54 L 12/03/24 12:45 Respiratory Rate 18 12/03/24 13:00 Blood Pressure 115/65 12/03/24 14:00 Pulse Oximetry 98 12/03/24 13:00 Medications Administered Medications: Discontinued Medications Generic Name Dose Route Start Last Admin Trade Name Freq PRN Reason Stop Dose Admin Sodium Chloride 1,000 mls @ 1,000 mls/hr 12/03/24 11:42 12/03/24 13:06 0.9 % Sodium Chloride 1000 Ml IV 12/03/24 12:41 Infused .Q1H ONE Infusion Ketorolac Tromethamine 15 mg 12/03/24 11:42 12/03/24 12:16 Ketorolac 15 Mg/Ml Inj IVP 12/03/24 11:43 15 mg ONCE ONE Administration Lidocaine 1 patch 12/03/24 15:23 12/03/24 15:44 Lidocaine 5% Patch TRANSDERMA 12/03/24 15:24 1 patch ONCE ONE Administration Protocol Morphine Sulfate 4 mg 12/03/24 11:42 12/03/24 12:16 Morphine 4 Mg/Ml Inj IVP 12/03/24 11:43 4 mg ONCE ONE Administration Morphine Sulfate 4 mg 12/03/24 13:42 12/03/24 13:54 Morphine 4 Mg/Ml Inj IVP 12/03/24 13:43 4 mg ONCE ONE Administration Ondansetron HCl 4 mg 12/03/24 11:42 12/03/24 12:16 Ondansetron 2 Mg/Ml Inj IVP 12/03/24 11:43 4 mg ONCE ONE Administration Medical Decision Making MDM Narrative Medical decision making narrative: Certainly could be ureteral stone and spasm. UTI/pyelonephritis? Also appears to have some greater trochanteric bursitis or greater trochanter area pain. No trauma to suggest need for dedicated bone imaging here. Doubtful diverticulitis but will look. Is likely I think is ovarian cyst or torsion but might need further assessment in this area. Reviewing her symptoms and history of think would benefit from CT abdomen pelvis. Reassessment is markedly improved after pain medications and antiemetic. I did independently review the noncontrasted CT of abdomen and pelvis. I do not see anything particularly abnormal. Prominent left ovary perhaps but without inflammatory changes/stranding. Radiology over-read below Technique: CT abdomen and pelvis without contrast Comparison: None Findings: Liver: Normal in caliber and attenuation. No masses. Gallbladder and bile ducts: Unremarkable. No dilation. Pancreas: Unremarkable. Spleen: Normal in caliber. No masses. Adrenal glands: Unremarkable. No masses. Kidneys: No obstruction. No masses. No calculi. GI tract: Normal in caliber and appearance. No sign of mass or inflammation. Appendix: Normal Lymph nodes: No lymphadenopathy. Aorta and vessels: No aneurysm or severe stenosis. Omentum/peritoneum/retroperitoneum: No masses or infiltration. No free air or significant free fluid. Pelvic organs: Normal uterus and ovaries. Bladder: No calculi or focal wall thickening. Bones: No fractures or suspicious bone lesions. Soft Tissues: No mass lesions or significant hernias. Impression: 1. Negative study. Please note that all CT scans at this facility use dose modulation, iterative reconstruction, and/or weight-based dosing when appropriate to reduce radiation dose to as low as reasonably achievable. Dictated by Vipul Rivero MD @ 12/03/2024 3:01:52 PM Labs are notable for 2+ blood on urine dip but not so notable on microscopic. Flares of pain again. Re-examination clearly has pain about the left sacral iliac joint. Presuming at this point that there is some muscle spasming regionally that is occurring triggered by pain emanating from here. Provided abdominal binder. See patient discharge plan for further discussion If this lidocaine patch is helpful, can purchase more [id number]. Can wear the abdominal binder or other compression for comfort. Consider following up with physical therapy. Can take 600-800 mg of ibuprofen per dose or up to 1000 mg of acetaminophen per dose. Alternative to the ibuprofen might be up to 500 mg of naproxen 2 times daily. Am prescribing some [place] Maria from [employer]. Remember that each tablet of [place] contains 325 mg of acetaminophen. Also prescribing Flexeril as discussed. Medical Records Medical records reviewed: Yes I reviewed the patient's medical records Lab Data Lab results reviewed: Yes I reviewed the patient's lab results Labs: Lab Results 12/03/24 12/03/24 Range/Units 12:00 12:16 WBC 5.12 (4.50-11.00) K/uL RBC 4.50 (4.00-5.20) m/uL Hgb 13.5 (12.0-16.0) gm/dL Hct 40.0 (33.0-51.0) % MCV 89 (80-100) fL MCH 30 (26-34) pg MCHC 34 (32-36) gm/dL RDW Coeff of Jerman 12.4 (11.5-15.5) % Plt Count 244 (140-440) K/uL Neut % (Auto) 49.6 (42.0-72.0) % Lymph % (Auto) 40.6 (20-44) % Mccracken % (Auto) 7.2 (0.0-11.0) % Eos % (Auto) 2.0 (0.0-7.0) % Baso % (Auto) 0.6 (0.0-3.0) % Neut # (Auto) 2.54 (1.7-7.0) K/uL Lymph # (Auto) 2.08 (0.90-2.90) K/uL Mccracken # (Auto) 0.40 (0.00-0.90) K/UL Eos # (Auto) 0.10 (0.00-0.50) K/uL Baso # (Auto) 0.03 (0.00-0.30) K/uL Abs Immat Gran (auto) 0.00 (0.00-0.30) K/uL Imm/Tot Granulo (auto) 0.0 % Sodium 138 (135-149) mmol/L Potassium 3.5 L (3.6-5.1) mmol/L Chloride 106 (96-114) mmol/L Carbon Dioxide 23 (20-32) mmol/L Anion Gap 9 (7-15) mEq/L BUN 11 (5-24) mg/dL Creatinine 0.6 (0.5-1.5) mg/dL Estimated Creat Clear 122.25 Estimated GFR 123 ml/min Glucose 118 H (60-115) mg/dL Calcium 9.2 (8.4-10.6) mg/dL C-Reactive Protein < 0.5 L (0.5-1.0) mg/dL Urine Color Yellow (Yellow) Urine Appearance Clear (Clear) Urine pH 6.0 (5.0-8.5) Ur Specific [place] 1.025 (1.000-1.030) Urine Protein Negative (Negative) Urine Glucose (UA) Negative (Negative) Urine Ketones Negative (Negative) Urine Blood 2+ A (Negative) Urine Nitrite Negative (Negative) Urine Bilirubin Negative (Negative) Urine Urobilinogen 0.2 (0.2-1.0) Ur Leukocyte Esterase Negative (Negative) Urine RBC 0-2 (0-2) Urine WBC 0-2 (0-5) Ur Squamous Epith Cells Few (None-Few) Urine Bacteria None (None) Urine HCG, Qual Negative (Negative) Discharge Plan Discharge Clinical Impression: Abdominal pain, Sacroiliac joint pain, Greater trochanteric bursitis Patient Disposition: Home w/ Parent or Adult Condition: Stable Additional Instructions: If this lidocaine patch is helpful, can purchase more [id number]. Can wear the abdominal binder or other compression for comfort. Consider following up with physical therapy. Can take 600-800 mg of ibuprofen per dose or up to 1000 mg of acetaminophen per dose. Alternative to the ibuprofen might be up to 500 mg of naproxen 2 times daily. Am prescribing some Santa Maria from [employer]. Remember that each tablet of [place] contains 325 mg of acetaminophen. Also prescribing Flexeril as discussed. Prescriptions: No Action oxycodone 5 mg tablet 5 mg PO Q6H PRN (Reason: pain) Qty: 10 0RF Follow Up/Referrals: Mey Marin CNP [Primary Care Provider, Family Practice] Stand Alone Forms: [employer] Info Instructions
[2024-12-03] MEDS: 0.9 % SODIUM CHLORIDE 1000 ml 1,000 ML IV (12:16)
[2024-12-03] MEDS: KETOROLAC 15 MG/ML inj IVP (12:16)
[2024-12-03] MEDS: MORPHINE 4 MG/ML INJ IVP ×2 (12:16→13:54)
[2024-12-03] MEDS: ONDANSETRON 2 MG/ML inj 4 MG IVP (12:16)
[2024-12-03 12:19] LABS: Basophils Absolute Auto 0.03 K/uL (0.00-0.30); Basophils Percent Auto 0.6 % (0.0-3.0); Hemoglobin* 13.5 gm/dL (12.0-16.0); Lymphocytes Absolute Auto 2.08 K/uL (0.90-2.90); Lymphocytes Percent Auto 40.6 % (20-44); Mean Corpuscular HGB Conc 34 gm/dL (32-36); Mean Corpuscular Hemoglobin 30 pg (26-34); Mean Corpuscular Volume 89 fL (80-100); Monocytes Percent Auto 7.2 % (0.0-11.0); Neutrophils Absolute Auto 2.54 K/uL (1.7-7.0); Neutrophils Percent Auto 49.6 % (42.0-72.0); Platelet Count* 244 K/uL (140-440); RDW Coefficient of Variation % 12.4 % (11.5-15.5); White Blood Count* 5.12 K/uL (4.50-11.00)
[2024-12-03 12:20] LABS: Chloride* 106 mmol/L (96-114); Potassium* 3.5 mmol/L (3.6-5.1); Sodium* 138 mmol/L (135-149)
[2024-12-03 12:23] LABS: Anion Gap 9 mEq/L (7-15); Blood Urea Nitrogen* 11 mg/dL (5-24); Calcium* 9.2 mg/dL (8.4-10.6); Carbon Dioxide* 23 mmol/L (20-32); Creatinine* 0.6 mg/dL (0.5-1.5); Est. Creatinine Clearance* 122.25; Estimated Glomerular Filt Rate 123 ml/min; Glucose* 118 mg/dL (60-115)
[2024-12-03 12:23] LABS: Appearance Urine Clear (Clear); Bilirubin Urine Negative (Negative); Blood Urine 2+ (Negative); Color Urine Yellow (Yellow); Glucose Urine Negative (Negative); Ketones Urine Negative (Negative); Leukocyte Esterase Urine Negative (Negative); Nitrite Urine Negative (Negative); Protein Urine Negative (Negative); Specific Gravity Urine 1.025 (1.000-1.030); Urobilinogen Urine 0.2 (0.2-1.0)
[2024-12-03 12:24] LABS: Slide Review Reflex No
[2024-12-03 12:26] LABS: Ur HCG Qualitative* Negative (Negative)
[2024-12-03 12:27] LABS: C Reactive Protein* < 0.5 mg/dL (0.5-1.0)
[2024-12-03 12:32] LABS: RBC Urine 0-2 (0-2); Squamous Epithelial Cell Urine Few (None-Few); WBC Urine 0-2 (0-5)
--- NOTE | 2024-12-03 12:54 | CRLHL7_ITS ---
For Patients: As a result of the Century Cures Act, medical imaging exams and procedure reports are released immediately into your electronic medical record. You may view this report before your referring provider. If you have questions, please contact your health care provider. INDICATION: 29-year-old female with severe left flank and pelvic pain. Technique: CT abdomen and pelvis without contrast Comparison: None Findings: Liver: Normal in caliber and attenuation. No masses. Gallbladder and bile ducts: Unremarkable. No dilation. Pancreas: Unremarkable. Spleen: Normal in caliber. No masses. Adrenal glands: Unremarkable. No masses. Kidneys: No obstruction. No masses. No calculi. GI tract: Normal in caliber and appearance. No sign of mass or inflammation. Appendix: Normal Lymph nodes: No lymphadenopathy. Aorta and vessels: No aneurysm or severe stenosis. Omentum/peritoneum/retroperitoneum: No masses or infiltration. No free air or significant free fluid. Pelvic organs: Normal uterus and ovaries. Bladder: No calculi or focal wall thickening. Bones: No fractures or suspicious bone lesions. Soft Tissues: No mass lesions or significant hernias. Impression: 1. Negative study. Please note that all CT scans at this facility use dose modulation, iterative reconstruction, and/or weight-based dosing when appropriate to reduce radiation dose to as low as reasonably achievable. Dictated by Vipul Rivero MD @ 12/03/2024 3:01:52 PM (Electronically Signed)
[2024-12-03] MEDS: LIDOCAINE 5% PATCH 1 PATCH TRANSDERMA (15:44)
== END 2024-12-03 15:48 | disposition home or self-care (01) ==
PROVIDERS: Emergency Provider Family Medicine; PCP Nurse Practitioner Family
DX: R10.9 Unspecified abdominal pain (principal); M53.3 Sacrococcygeal disorders, not elsewhere classified; M70.62 Trochanteric bursitis, left hip
CPT/HCPCS: 36415; 74176; 80048; 81001; 81025; 85025; 86140; 94761; 96374; 96375; 96376; 99284; A9270; J1885; J2270; J2405; J7030

== ENCOUNTER 2024-12-21 20:22 | Emergency (ER) | payer MEDICAID, SELFPAY ==
--- OUTSIDE RECORDS SUMMARY | 2024-12-21 20:25 | XMS_ITS | Clinical Summary ---
Author Organization [facility] Address [address] [place] [address] Care Team Providers Care Banquet Kitchen Supervisor Name Role Phone sukhwinderShirlene lazaroy Unavailable Unavail able [facility], Justin Crews Primary Care Provider + Allergies [...] of Treatment Not on file Care Teams Banquet Kitchen Supervisor Relationship Specialty Start Date End Date Clinic, Justin Crews [address] [place] [id number] PCP - General 04/15/17 Shirlene Soto Referring Physician custodian blood bank 10/06/12
--- OUTSIDE RECORDS SUMMARY | 2024-12-21 20:25 | XMS_ITS | Clinical Summary ---
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 2010 SAB Complications:Molar pregnanc y (HC) 2010 Term M Adonis Huddleston tt 2011 Term 2.72 kg (6 lb) M Yakov chakraborty Comments:System Genera gurdeep. Please review and update details. 2015 Term 37w 0d 0h 10m/ 3.21 kg (7 lb 1.2 oz) M Vag-S pont Epidur al Livin g 8 9 Complications:None Delivery Location:[facility] Current Comments Blood type A positive. Last [...] Health Maintenance Due Date Last Done Comments Tetanus booster 02/20/2004 BMI (ht and wt on same day) for age 18+ 08/03/2023 08/03/2022, 07/11/2020, 08/18/2019, Additional history exists Depression screening for age 12+ 08/03/2023 08/03/2022, 08/18/2019, 08/18/2019, Additional history exists COVID-19 vaccine series ( season) 2024 01/27/2021 Pap test for age 21-65 12/20/2024 2, 12/20/2021, 09/16/2018, Additional history exists Influenza Vaccine (#1) 2025 05/24/2010 RSV vaccine for adults or [...] Procedure Name Priority Date/Time Associated Diagnosis Comments SCAN-CT INTERPRETATION 12:00 AM CDT ANTI HIV 1/2 Routine 12/20/2021 11:10 AM CDT Routine screening for STI (sexually transmitted infection) WORD PROCESSING SPECIALIST THIN PREP PAP SCREEN IMAGED Routine 12/20/2021 10:38 AM CDT Pap smear for cervical cancer screening ANTI HCV Routine 09/16/2018 9:52 AM CDT Screening examination for STD (sexually transmitted disease) from Last 3 Months or Most Recently Relevant to Health Maintenance Results * SCAN-CT INTERPRETATION (12/03/2024 12:00 AM CDT) Anatomical Region Laterality Modality Other us Scanner OTHER Final Result * ANTI HIV 1/2 (12/20/2021 11:10 AM CDT) HIV-1/HIV-2 ANTIBODY Non-Reacti ve Non-Reacti ve 12/20/2021 8:18 PM CDT [facility] Comment:HIV-1 p24 and HIV-1/ HIV-2 Ab not detected. Blood BLOOD SPECIMEN / Unknown Venipuncture / Unknown 12/20/2021 11:10 AM CDT 12/20/2021 11:13 AM CDT us Catherine Andrews MD SEND OUTS Final Resul t [facility] [address] [place] [address], [place] * WORD PROCESSING SPECIALIST THIN PREP PAP SCREEN IMAGED (12/20/2021 10:38 AM CDT) Case Report Gynecologic Cytology Report Case: [id number] Authorizing Provider: Catherine Andrews MD Collected: 12/20/2021 1038 Ordering Location: [facility] Received: 12/20/2021 1131 Clinic First Screen: Mat, Xon Patricio Rescreen: Loly Kendall Specimen: WORD PROCESSING SPECIALIST ThinPrep Vial Screening, Cervical 01/04/2022 1:35 PM CDT [facility] INTERPRETATION/ RESULT NEGATIVE FOR INTRAEPITHELIAL LESION OR MALIGNANCY (NIL) (none) 01/04/2022 1:35 PM CDT [facility] at 1335 CDT SPECIMEN ADEQUACY Satisfactory for evaluation Endocervical component present 01/04/2022 1:35 PM CDT [facility] HPV REQUEST HPV and PAP 01/04/2022 1:35 PM CDT [facility] Date of LMP 11/07/2021 01/04/2022 1:35 PM CDT [facility] Last Pap Date 03/06/21 01/04/2022 1:35 PM CDT [facility] Last Pap Result LSIL 1:35 PM CDT [facility] Abnormal Pap or [place] Bx in last 5 years Yes 01/04/2022 1:35 PM CDT [facility] Menstrual Status Regular Periods 01/04/2022 1:35 PM CDT [facility] [place] Bx Done Today No 01/04/2022 1:35 PM CDT [facility] Additional Information 04/06 normal colpscopy. No bx collected. 01/04/2022 1:35 PM CDT [facility] [employer] ENTRAL LABORATORY Comment: Cytology is screened at [facility] [facility], Central Laboratory - [address], [place] [address] and [facility] - [address], [place] [address] and [facility] - [address] [place] [address] [facility] Laboratory - [address], [place] [address] Automated Review Successful 01/04/2022 1:35 PM CDT [facility] ENTRAR LABORATORY Comment:Specimen processed s uccessfully by automated roof plumber device, ThinPrep Imaging System, [employer] ANCILLARY TESTING WORD PROCESSING SPECIALIST HPV Ordered, Please see separate report 01/04/2022 1:35 PM CDT [facility] EN[facility] LAB[facility]ATORY Note The pap test is a [...] and malignant lesions. 01/04/2022 1:35 PM CDT [facility] Other (Cervical) Non-Blood / Unknown 12/20/2021 10:38 AM CDT 12/20/2021 11:31 AM CDT us Catherine Andrews MD PATHOLOGY/CYTOLOGY Final Re sult [facility] [address] [place] [id number], [place] * ANTI HCV (09/16/2018 9:52 AM CDT) HEPATITIS C ANTIBODY Non-React camilo Non-React camilo 09/16/2018 7:41 PM CDT [facility] TR[facility] Comment:Antibodies to HCV no t detected; does not exclude the possibility of exposure to HCV. Blood BLOOD SPECIMEN / Unknown Venipuncture / Unknown 09/16/2018 9:52 AM CDT 09/16/2018 9:57 AM CDT us Lynnette Black NP SEND OUTS Final Re sult [facility] [address] [place] [address], [place] from Last 3 Months or Most Recently Relevant to Health Maintenance Insurance [employer]ICA CHOICE C[employer] MEDICAID [facility] DEPT [address] [place] [id number] [place] [id number] Advance Directives * Full Code (Latest Code [...] 6:12 PM 11/23/2015 10:34 PM Care Teams Chief Arson Division Relationship Specialty Start Date End Date Mey Marin NP [address] [facility] [place] [address] PCP - General Nurse Practitioner - Family 07/12/20
[2024-12-21 20:42] VITALS: BP 149/90; PULSE 70; RESP 18; TEMP 36.7; O2SAT 98; BMI 31.6
--- NOTE | 2024-12-21 21:28 | CRLHL7_ITS ---
For Patients: As a result of the Century Cures Act, medical imaging exams and procedure reports are released immediately into your electronic medical record. You may view this report before your referring provider. If you have questions, please contact your health care provider. INDICATION: DIZZINESS, FALL TECHNIQUE: Non-contrast CT of the head is submitted. COMPARISON: None. FINDINGS: The ventricles, sulci and gyri are of normal size, shape and contour. Midline structures are centrally located. No convincing evidence of intra- or extra-axial fluid collections. No skull fractures. Partially visualized comminuted left zygomatic arch fracture deformity, age indeterminate. IMPRESSION: No radiographic evidence of acute intracranial abnormalities. Please note that all CT scans at this facility use dose modulation, iterative reconstruction, and/or weight-based dosing when appropriate to reduce radiation dose to as low as reasonably achievable. Dictated by Abner Contreras MD @ 12/21/2024 10:32:39 PM (Electronically Signed)
--- NOTE | 2024-12-21 21:36 | CRLHL7_ITS ---
For Patients: As a result of the Cures Act, medical imaging exams and procedure reports are released immediately into your electronic medical record. You may view this report before your referring provider. If you have questions, please contact your health care provider. INDICATION: Fall and injury, left breast pain. TECHNIQUE: PA chest and left ribs 4 views. COMPARISON: None. FINDINGS: Cardiovascular: Heart size and pulmonary vasculature are within normal limits. Lungs and pleural spaces: The lungs are clear. No sign of pleural effusion. No pneumothorax identified. Bones: Detailed oblique views of the ribs demonstrate no displaced fracture. Soft tissues: Implanted linear contraceptive device in the left upper arm. IMPRESSION: 1. No acute cardiopulmonary findings. 2. No displaced rib fracture identified. Dictated by Sandra Calabrese MD @ 12/21/2024 10:56:27 PM (Electronically Signed)
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
== END 2024-12-21 23:07 | disposition short-term general hospital (02) ==
PROVIDERS: Emergency Provider Family Medicine; PCP Nurse Practitioner Family
DX: H54.62 Unqualified visual loss, left eye, normal vision right eye (principal); S20.02XA Contusion of left breast, initial encounter; S02.40FA Zygomatic fracture, left side, initial encounter for closed fracture; W18.00XA Striking against unspecified object with subsequent fall, initial encounter; Y92.814 Boat as the place of occurrence of the external cause
CPT/HCPCS: 70450; 71101; 99284; 99285